=== PATIENT | female | born 1980 | race Hispanic/Latino ===

== ENCOUNTER 2016-08-03 02:46 | Emergency (ER) | payer BC, SELFPAY ==
[~2016-08-03] VITALS: Ht 152.4 cm; Wt 97.1 kg
--- NOTE | 2016-08-03 02:55 | NUR ---
UA COLLECTED TAKEN TO LAB
--- NOTE | 2016-08-03 02:56 | ER.PDOC ---
General Chief Complaint: Requesting Medical Care Stated Complaint: POSS UTI Time seen by MD: 02:55 Source: patient Exam Limitations: no limitations History of Present Illness Initial Comments dysuria, frequency 1 day getting worse. "thurman down there" Timing/Duration: getting worse Severity/Quality: moderate Prior symptoms/Treatment: No Similar symptoms previous, No Recenly Seen Allergies: Coded Allergies: No Known Allergies (Unverified , 08/03/16) Home Meds Reported Medications Rosuvastatin 10MG (CRESTOR 10MG) 10 Mg Tablet, 10 MG PO DAILY, TAB 08/03/16 Hydrochlorothiazide (HYDROCHLOROTHIAZIDE) 12.5 Mg Tablet, 12.5 MG PO DAILY, TABLET 08/03/16 Azilsartan Medoxomil (EDARBI) 40 Mg Tablet, 40 MG PO DAILY, TABLET 08/03/16 Sitagliptin Phosphate (JANUVIA) 50 Mg Tablet, 50 MG PO DAILY, TABLET 08/03/16 Levothyroxine Sodium (LEVOTHYROXINE SODIUM) 50 Mcg Tablet, 50 MCG PO DAILY, TABLET 08/03/16 Vital Signs First Vital Signs Date Time Temp Pulse Resp B/P (MAP) Pulse Ox O2 Delivery O2 Flow Rate FiO2 08/03/16 02:56 97.6 77 16 95 08/03/16 03:02 136/74 (94) Last Vital Signs Date Time Temp Pulse Resp B/P (MAP) Pulse Ox O2 Delivery O2 Flow Rate FiO2 08/03/16 03:02 97.6 77 16 136/74 (94) 95 Past Medical History Medical History: no pertinent history Surgical History: no surgical history Social History Smoking: non-smoker Alcohol Use: none Drug Use: none Reviewed Nursing Reviewed: Vital Signs, Abn. Noted, Nursing Assessment Review of Systems Constitutional: no symptoms reported EENTM: no symptoms reported Respiratory: no symptoms reported Cardiovascular: no symptoms reported Gastrointestinal: no symptoms reported Genitourinary: see HPI, burning, dysuria, frequency Musculoskeletal: no symptoms reported Skin: no symptoms reported Psychiatric/Neurological: no symptoms reported Endocrine: no symptoms reported Hematologic/Lymphatic: no symptoms reported All Other Systems: Reviewed and Negative Physical Exam General Appearance: No Apparent Distress, WD/WN EENT: eyes nml inspection, nml ENT inspection, pharynx nml Neck: nml inspection, non-tender Cardiovascular/Respiratory: Regular Rate, Rhythm, No M/R/G, Normal Peripheral Pulses, No JVD, Normal Breath Sounds, No Respiratory Distress Abdomen: Normal Bowel Sounds, Non Tender, Soft, No Organomegaly, No Pulsatile Mass Rectal: Normal Exam Back: nml inspection Extremities: Normal Range of Motion, Non-Tender, Normal Inspection, No Pedal Edema, No Calf Tenderness, Normal Capillary Refill 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 NML as Tested, No Motor/Sensory Deficits, Alert, Normal Mood/Affect, Oriented x 3 Skin: Normal Color, Warm/Dry Lymphatic: No Adenopathy Departure Time of Disposition: 03:08 Disposition: 01 HOME, SELF-CARE Impression: Primary Impression: UTI (urinary tract infection) Additional Impression: Yeast infection Condition: Stable Referrals: PCP,UNKNOWN (PCP) PRIMARY CARE PROVIDER Additional Instructions: cipro 500mg po bid 7 days Difulcan 1 po qOD #2 Problem Qualifiers Primary Impression: UTI (urinary tract infection) Urinary tract infection type: acute cystitis Hematuria presence: without hematuria Qualified Codes: N30.00 - Acute cystitis without hematuria HE POMPA MD Aug 03, 2016 02:56
[2016-08-03] MEDS ORDERED: DIFLUCAN PO STA (03:04)
[2016-08-03] MEDS ORDERED: ROCEPHIN IM IM STA (03:04)
[2016-08-03] MEDS ORDERED: AZIL40TA PO (03:06)
[2016-08-03] MEDS ORDERED: HYDR12.58 PO (03:06)
[2016-08-03] MEDS ORDERED: LEVO50TA6 PO (03:06)
[2016-08-03] MEDS ORDERED: ROSU10TA PO (03:06)
[2016-08-03] MEDS ORDERED: SITA50TA PO (03:06)
[2016-08-03] MEDS ORDERED: LIDOCAINE 1% VIAL ONE (03:09)
[2016-08-03] MEDS ORDERED: ROCEPHIN ONE (03:09)
[2016-08-03] MEDS ORDERED: DIFLUCAN ONE (03:09)
[2016-08-03 03:25] LABS: BILIRUBIN,URINE NEGATIVE (NEGATIVE); UROBILINOGEN,URINE NORMAL (NEGATIVE)
[2016-08-03 03:31] LABS: APPEARANCE,URINE SLIGHTLY CLOUDY (CLEAR); UA COLOR YELLOW (YELLOW); WBC,URINE 0-2 WBC/HPF (0-2)
--- NOTE | 2016-08-03 03:48 | NUR ---
DISCHARGE DISCHARGE INSTRUCTIONS AND PRESCRIPTION MEDICATION DISCUSSED. PT VERBALIZED UNDERSTANDING. ENCOURAGED TO RETURN FOR ANY CONCERNS.
== END 2016-08-03 03:48 | disposition home or self-care (01) ==
LOC: ER 02:46
DX: N30.00 Acute cystitis without hematuria (principal); B37.9 Candidiasis, unspecified; Z79.899 Other long term (current) drug therapy
CPT/HCPCS: 81000; 96372; 99283; J0696; J2001